=== PATIENT | female | born 1980 | race Caucasian/White ===

== ENCOUNTER 2018-08-19 07:20 | Emergency (ER) | payer MEDICAID | END 2018-08-19 07:45 | disposition home or self-care (01) | LOC: ERS 07:20 | DX: F29 Unspecified psychosis not due to a substance or known physiological condition (principal); Z76.0 Encounter for issue of repeat prescription; F17.210 Nicotine dependence, cigarettes, uncomplicated | CPT/HCPCS: 99284 ==